=== PATIENT | female | born 1985 | race Caucasian/White ===

== ENCOUNTER 2016-11-01 07:14 | Inpatient (IN) | payer MEDICAID ==
[~2016-11-01] VITALS: Ht 165.1 cm; Wt 67.7 kg
[~2016-11-01 07:14] MED LIST: HYDR-906 PO
--- NOTE | 2016-11-01 07:23 | TRIAGE ---
OB Triage Datetime Report Generated by CPN: 11/01/2016 07:23 Datetime: 11/01/2016 07:21 Time of Arrival: 11/01/2016 07:10 Arrived By: Wheelchair Arrived From: Home Chief Complaint: w/ c/o ucs and urge to push Movement: Present Contractions: Regular Time Contractions Began: 11/01/2016 02:00 Contractions: Q2 Rupture of Membranes: Denies Vaginal Bleeding: Small Vaginal Discharge: Denies Recent Sexual Intercouse: Denies Abdominal Trauma: Not Applicable Patient Complaints: Contractions Initial Plan: JEFRY SANCHEZ
[2016-11-01] MEDS ORDERED: LACTATED RINGER'S 1,000 ML IV SCH (07:24)
[2016-11-01 07:28] VITALS: Ht 165.1 cm; Wt 67.7 kg
[2016-11-01] MEDS ORDERED: CARBOPROST 250 MCG INJ IM PRN ×2 (07:30→10:30)
[2016-11-01] MEDS ORDERED: LIDOCAINE 1% (MPF) 30 ML INJ INJ PRN (07:30)
[2016-11-01] MEDS ORDERED: MISOPROSTOL 200 MCG TAB PR PRN ×2 (07:30→10:30)
[2016-11-01] MEDS ORDERED: IBUPROFEN 600 MG TAB PO PRN ×2 (07:30→10:30)
[2016-11-01] MEDS ORDERED: ACETAMINOPHEN/CODEINE #3 TAB PO PRN ×3 (07:30→10:30)
[2016-11-01] MEDS ORDERED: METHYLERGONOVINE 0.2 MG INJ IM PRN ×2 (07:30→10:30)
[2016-11-01] MEDS ORDERED: BUTORPHANOL 2 MG INJ IV PRN (07:30)
[2016-11-01] MEDS ORDERED: OXYTOCIN 30 UNITS/LR 500 ML IV SCH ×2 (07:30)
[2016-11-01] MEDS ORDERED: OXYTOCIN 30 UNITS/LR 500 ML IV PRN ×2 (07:30→10:30)
[2016-11-01 07:43] LABS: ADD SCAN DIFF NO
[2016-11-01 07:50] LABS: BASOPHILS % 0.4 % (0.0-2.0); EOSINOPHILS # 0.1 10^3/ul (0.0-0.5); EOSINOPHILS % 0.8 % (0.0-7.0); HEMATOCRIT 42.3 % (37.0-47.0); HEMOGLOBIN 14.3 g/dl (12.0-16.0); LYMPHOCYTES # 1.7 10^3/ul (0.8-2.9); LYMPHOCYTES % 18.9 % (15.0-51.0); MEAN CORPUSCULAR HEMOGLOBIN 31.1 pg (29.0-33.0); MEAN CORPUSCULAR HGB CONC 33.8 g/dl (32.0-37.0); MEAN PLATELET VOLUME 11.4 fl (7.4-10.4); MONOCYTE # 0.8 10^3/ul (0.3-0.9); MONOCYTES % 8.3 % (0.0-11.0); NEUTROPHIL # 6.5 10^3/ul (1.6-7.5); NEUTROPHILS % 70.5 % (39.0-77.0); PLATELET COUNT 192 10^3/UL (140-415); RED CELL DISTRIBUTION WIDTH 12.9 % (11.5-14.5); WHITE BLOOD COUNT 9.2 10^3/ul (4.8-10.8)
[2016-11-01 08:02] LABS: INR 0.9; PROTIME 12.1 Sec (12.2-14.2); PT RATIO 0.9
[2016-11-01 08:03] LABS: PARTIAL THROMBOPLASTIN TIME 27.5 Sec (25.0-35.0)
[2016-11-01] MEDS ORDERED: LACTATED RINGER'S 1,000 ML IV PRN (09:00)
--- NOTE | 2016-11-01 09:01 | LDN ---
Date/Time of Note Date/Time of Note DATE: 11/01/16 TIME: 08:05 Delivery Summary Spontaneous vaginal delivery Weeks of Gestation 39 4/ Placenta Delivered: Spontaneously Meconium: none Episiotomy: No Laceration repair: small sulcus laceration repaired Anesthesia type: Local Estimated blood loss: 250 Sponge & Needle done & correct: Yes All needle counts correct: Yes Any foreign bodies felt in the: No Problems: Delivery Information Sex Sex: male Apgars 1 Minute: 8 5 Minute: 9 Suctioning Nose & mouth suctioned at shiraz: Yes Delee suction performed: No Umbilical Cord Umbilical cord with: 3 Vessels Cord presentations: nuchal cord Nuchal cord present X: 1 Cord Blood was obtained: Yes Mother & Baby Disposition Disposition Mom transferred to: Med/Surg CAESAR VALADEZ MD Nov 01, 2016 09:01
[2016-11-01] MEDS: OXYTOCIN 30 UNITS/LR 500 ML IV SCH ×4 (10:04→15:33)
[2016-11-01 10:10] VITALS: BP 109/66; PULSE 74; RESP 19
[2016-11-01] MEDS ORDERED: DIBUCAINE 1% 30 GM OINT PR PRN ×2 (10:30)
[2016-11-01] MEDS ORDERED: ACETAMINOPHEN 325 MG TAB PO PRN (10:30)
[2016-11-01] MEDS ORDERED: LANOLIN 7 GM TUBE TOP PRN ×2 (10:30)
[2016-11-01] MEDS ORDERED: OXYCODONE/ASPIRIN (4.88/325) TAB PO PRN ×4 (10:30)
[2016-11-01] MEDS ORDERED: BENZOCAINE 20% 56 ML SPRAY TOP PRN ×2 (10:30)
[2016-11-01] MEDS ORDERED: ACETAMINOPHEN 500 MG TAB PO PRN (10:30)
[2016-11-01] MEDS ORDERED: ONDANSETRON 4 MG INJ IV PRN (10:30)
[2016-11-01] MEDS ORDERED: SENNA/DOCUSATE NA (8.6MG/50MG) TAB PO PRN (10:30)
[2016-11-01] MEDS ORDERED: WITCH HAZEL/GLYCERIN PAD PR PRN ×2 (10:30)
[2016-11-01 10:50] VITALS: BP 108/62; PULSE 74; RESP 19
[2016-11-01 12:00] VITALS: BP 94/52; PULSE 78; RESP 18
[2016-11-01] MEDS: IBUPROFEN 600 MG TAB PO SCH ×3 (12:25→23:22)
[2016-11-01 16:00] VITALS: BP 121/83; PULSE 75; RESP 19
[2016-11-01 20:00] VITALS: BP 99/67; PULSE 70; RESP 18
[2016-11-01] MEDS: SENNA/DOCUSATE NA (8.6MG/50MG) TAB PO SCH (21:49)
[2016-11-02 04:41] VITALS: BP 105/66; PULSE 69; RESP 20
[2016-11-02] MEDS: IBUPROFEN 600 MG TAB PO SCH ×3 (05:11→17:36)
[2016-11-02 08:00] VITALS: BP 105/67; PULSE 74; RESP 19
[2016-11-02 08:08] LABS: ADD SCAN DIFF NO
[2016-11-02 08:22] LABS: BASOPHILS % 0.3 % (0.0-2.0); EOSINOPHILS # 0.1 10^3/ul (0.0-0.5); EOSINOPHILS % 1.2 % (0.0-7.0); HEMATOCRIT 35.3 % (37.0-47.0); HEMOGLOBIN 11.7 g/dl (12.0-16.0); LYMPHOCYTES % 21.6 % (15.0-51.0); MEAN CORPUSCULAR HEMOGLOBIN 31.5 pg (29.0-33.0); MEAN CORPUSCULAR HGB CONC 33.1 g/dl (32.0-37.0); MEAN CORPUSCULAR VOLUME 94.9 fl (82.0-101.0); MEAN PLATELET VOLUME 11.6 fl (7.4-10.4); MONOCYTE # 0.7 10^3/ul (0.3-0.9); MONOCYTES % 7.4 % (0.0-11.0); NEUTROPHIL # 6.4 10^3/ul (1.6-7.5); NEUTROPHILS % 68.8 % (39.0-77.0); PLATELET COUNT 161 10^3/UL (140-415); RED BLOOD COUNT 3.72 10^6/ul (4.20-5.40); RED CELL DISTRIBUTION WIDTH 13.1 % (11.5-14.5); WHITE BLOOD COUNT 9.3 10^3/ul (4.8-10.8)
[2016-11-02] MEDS: SENNA/DOCUSATE NA (8.6MG/50MG) TAB PO SCH ×2 (08:47→19:56)
--- NOTE | 2016-11-02 09:16 | PN ---
Date/Time of Note Date/Time of Note DATE: 11/02/16 TIME: 09:15 OB Subjective Subjective Subjective day 1 Afebrile vital signs stable abdomen soft uterus firm lochia normal extremity normal ambulation encouraged plan of possible a.m. discharge discussed with the patient Laboratory Tests Test 11/02/16 06:40 White Blood Count 9.310^3/ul Red Blood Count 3.7210^6/ul Hemoglobin 11.7g/dl Hematocrit 35.3% Mean Corpuscular Volume 94.9fl Mean Corpuscular Hemoglobin 31.5pg Mean Corpuscular Hemoglobin Concent 33.1g/dl Red Cell Distribution Width 13.1% Platelet Count 68355^3/UL Mean Platelet Volume 11.6fl Neutrophils % 68.8% Lymphocytes % 21.6% Monocytes % 7.4% Eosinophils % 1.2% Basophils % 0.3% Nucleated Red Blood Cells % 0.0/100WBC Neutrophils # 6.410^3/ul Lymphocytes # 2.010^3/ul Monocytes # 0.710^3/ul Eosinophils # 0.110^3/ul Basophils # 0.010^3/ul Nucleated Red Blood Cells # 0.010^3/ul Current Medications Medications (Trade) Dose Ordered Sig/Debbi Route PRN Reason Start Time Stop Time Status Last Admin Dose Admin Lactated Ringer's (Lr) 1,000 ml @ 125 mls/hr Q8H IV 11/01/16 07:24 11/01/16 10:09 DC 11/01/16 07:50 Butorphanol Tartrate (Stadol) 2 mg Q2H PRN IV PAIN 11/01/16 07:30 11/01/16 10:09 DC Lidocaine 30 ml 30 ml ONCE PRN INJ EPISIOTOMY/TEARING 11/01/16 07:30 11/01/16 10:09 DC Oxytocin/Lactated Ringer's 500 ml @ 125 mls/hr ONCE -MAY REPEAT X1 IV 11/01/16 07:30 11/01/16 10:09 DC 11/01/16 08:24 Oxytocin/Lactated Ringer's 500 ml @ 125 mls/hr ONCE IV 11/01/16 07:30 11/01/16 10:09 DC 11/01/16 08:38 Ibuprofen (Motrin) 600 mg ONCE PRN PO Mild Pain (Pain Score 1-3) 11/01/16 07:30 11/01/16 10:10 DC Acetaminophen/ Codeine Phosphate 2 tab 2 tab ONCE PRN PO Moderate to Severe Pain (4-10) 11/01/16 07:30 11/01/16 10:10 DC 11/01/16 08:35 Lactated Ringer's 1,000 ml @ 2,000 mls/hr Q30M PRN IV PRE-EPIDURAL BOLUS 11/01/16 09:00 11/01/16 10:10 DC Oxytocin/Lactated Ringer's 500 ml @ 0 mls/hr ONCE PRN IV For Hemorrhage Management 11/01/16 07:30 11/01/16 10:08 DC Methylergonovine Maleate (Methergine) 0.2 mg ONCE PRN IM VAGINAL BLEEDING 11/01/16 07:30 11/01/16 10:08 DC Carboprost Tromethamine (Hemabate) 250 mcg ONCE PRN IM VAGINAL BLEEDING 11/01/16 07:30 11/01/16 10:08 DC Misoprostol (Cytotec) 1,000 mcg ONCE PRN AR VAGINAL BLEEDING 11/01/16 07:30 11/01/16 10:08 DC Oxycodone/Aspirin (Percodan) 1 tab Q3H PRN PO PAIN LEVEL 1-5 11/01/16 10:30 Oxycodone/Aspirin (Percodan) 2 tab Q3H PRN PO PAIN LEVEL 6-10 11/01/16 10:30 Senna/Docusate Sodium (Senokot-S) 1 tab BID PRN PO CONSTIPATION 11/01/16 10:30 Witch Cinthia/ Glycerin (Tucks Pads) 1 pad BEDSIDE MEDICATION PRN AR HEMORRHOID/EPISIOTMY PAIN 11/01/16 10:30 11/01/16 11:55 Benzocaine (Dermoplast [place]) 1 spray BEDSIDE MEDICATION PRN TOP HEMORRHOID/EPISIOTMY PAIN 11/01/16 10:30 11/01/16 11:54 Dibucaine (Nupercainal) 1 applic BEDSIDE MEDICATION PRN AR HEMORRHOID/EPISIOTMY PAIN 11/01/16 10:30 Lanolin ([id number]) 1 applic BEDSIDE MEDICATION PRN TOP BEDSIDE FOR GRISELDA TO NIPPLES 11/01/16 10:30 Diphtheria/ Tetanus/Acell Pertussis 0.5 ml 0.5 ml ONCE ONCE IM* 11/03/16 09:00 11/03/16 09:01 Oxytocin/Lactated Ringer's 500 ml @ 0 mls/hr ONCE PRN IV For Hemorrhage Management 11/01/16 10:30 Methylergonovine Maleate (Methergine) 0.2 mg ONCE PRN IM VAGINAL BLEEDING 11/01/16 10:30 Carboprost Tromethamine (Hemabate) 250 mcg ONCE PRN IM VAGINAL BLEEDING 11/01/16 10:30 Misoprostol 1000 mcg 1,000 mcg ONCE PRN AR VAGINAL BLEEDING 11/01/16 10:30 Oxytocin/Lactated Ringer's 500 ml @ 125 mls/hr Q4H IV 11/01/16 10:04 11/01/16 17:31 DC 11/01/16 11:53 Ibuprofen (Motrin) 600 mg Q6H PRN PO PAIN 11/01/16 10:30 11/01/16 10:32 DC Acetaminophen 500 mg 500 mg Q6H PRN PO PAIN AND OR ELEVATED TEMP 11/01/16 10:30 Oxytocin/Lactated Ringer's 500 ml @ 125 mls/hr Q4H IV 11/01/16 10:04 11/01/16 17:31 DC Ibuprofen (Motrin) 600 mg Q6 PO 11/01/16 12:00 11/02/16 05:11 Acetaminophen (Tylenol Tab) 650 mg Q4H PRN PO PAIN LEVEL 1-5 11/01/16 10:30 11/01/16 10:31 DC Acetaminophen/ Codeine Phosphate (Tylenol No.3) 1 tab Q4H PRN PO PAIN LEVEL 1-5 11/01/16 10:30 Acetaminophen/ Codeine Phosphate (Tylenol No.3) 2 tab Q4H PRN PO PAIN LEVEL 6-10 11/01/16 10:30 Oxycodone/Aspirin (Percodan) 1 tab Q3H PRN PO PAIN LEVEL 1-5 11/01/16 10:30 UNV Oxycodone/Aspirin (Percodan) 2 tab Q3H PRN PO PAIN LEVEL 6-10 11/01/16 10:30 11/01/16 10:32 DC Ondansetron HCl (Zofran Inj) 4 mg Q6H PRN IV NAUSEA AND/OR VOMITING 11/01/16 10:30 Senna/Docusate Sodium (Senokot-S) 1 tab BID PO 11/01/16 21:00 11/02/16 08:47 Witch Cinthia/ Glycerin (Tucks Pads) 1 pad BEDSIDE MEDICATION PRN AR HEMORRHOID/EPISIOTMY PAIN 11/01/16 10:30 UNV Benzocaine (Dermoplast [place]) 1 spray BEDSIDE MEDICATION PRN TOP HEMORRHOID/EPISIOTMY PAIN 11/01/16 10:30 UNV Dibucaine (Nupercainal) 1 applic BEDSIDE MEDICATION PRN AR HEMORRHOID/EPISIOTMY PAIN 11/01/16 10:30 UNV Lanolin (Cwk-B-[place]) 1 applic BEDSIDE MEDICATION PRN TOP BEDSIDE FOR GRISELDA TO NIPPLES 11/01/16 10:30 11/01/16 10:35 DC Measles/Mumps/ Rubella Vaccine Live (Mmr Ii Vaccine) 0.5 ml ONCE ONCE SC* 11/03/16 09:00 11/03/16 09:01 REGINA STOCKTON MD Nov 02, 2016 09:16
[2016-11-02 16:00] VITALS: BP 101/57; PULSE 62; RESP 18
[2016-11-02 22:24] VITALS: BP 104/58; PULSE 66; RESP 18
[2016-11-03] MEDS: IBUPROFEN 600 MG TAB PO SCH ×3 (00:10→12:23)
[2016-11-03 04:20] VITALS: BP 96/53; PULSE 69; RESP 18
[2016-11-03 08:00] VITALS: BP 95/55; PULSE 63; RESP 18
[2016-11-03] MEDS ORDERED: DIPHTH/TET/ACEL PERTUSS (ADULT) 0.5 ML VIAL IM* ONE (09:00)
[2016-11-03] MEDS ORDERED: MEASLES,MUMPS,RUBELLA VACCINE INJ SC* ONE (09:00)
[2016-11-03] MEDS: SENNA/DOCUSATE NA (8.6MG/50MG) TAB PO SCH (09:54)
--- NOTE | 2016-11-03 15:58 | PD.PPDC ---
[facility] Discharge Instruction Condition Patient Condition: Good Activity/Restrictions Activity: Normal Activity May Shower Follow-up Follow-up with Physician: 2, Week/Weeks Provider Information: instructions given, appointment in 2 weeks for check Return to clinic for [facility] Instructions: Fever greater than 101 Chills Worsening abdominal pain Excessive Vaginal Bleeding More than 2 pads per hour Unable to tolerate diet OB Instructions: Breast Tenderness Depression Blurried Vision Headache REGIAN STOCKTON MD Nov 03, 2016 15:58
[2016-11-03 16:00] VITALS: BP 93/55; PULSE 67; RESP 18
--- NOTE | 2016-11-03 16:02 | DS ---
Date/Time of Note Date/Time of Note DATE: 11/03/16 TIME: 16:00 Discharge Summary Admission/Discharge Info Admit Date/Time Nov 01, 2016 at 07:18 Discharge Date/Time November 03, 2016 at 1600 Final Diagnosis Term delivered day 2 Patient Condition: Good Procedures Normal vaginal delivery Hx of Present Illness Term admitted for delivery Hospital Course Satisfactory uneventful Home Meds Active Scripts Hydrocodone/Acetaminophen ([place] 5-325 Tablet) 1 Each Tablet, 1 EACH PO Q8, #6 TAB Prov:CINDY DEVINE DO 05/27/16 Follow-up Plan Appointment clinic in 2 weeks for check Primary Care Provider Care Physician No Primary Time spent on discharge: < 30 minutes ERGINA STOCKTON MD Nov 03, 2016 16:02
== END 2016-11-03 17:56 | disposition home or self-care (01) | DRG 775 ==
LOC: OBT 07:14 → L-D 07:15 → OBT 07:16 → L-D 07:18 → PP1 10:07
PROVIDERS: ADMIT Obstetrics & Gynecology; ATTEND Obstetrics & Gynecology
PROC: 10E0XZZ Delivery of Products of Conception, External Approach (ICD-10-PCS; principal; 2016-11-01)
PROC: 0UQGXZZ Repair Vagina, External Approach (ICD-10-PCS; 2016-11-01)
PROC: 3E00X4Z Introduction of Serum, Toxoid and Vaccine into Skin and Mucous Membranes, External Approach (ICD-10-PCS; 2016-11-03)
DX: O69.81X0 Labor and delivery complicated by cord around neck, without compression, not applicable or unspecified (principal); O71.4 Obstetric high vaginal laceration alone; Z23 Encounter for immunization; Z3A.39 39 weeks gestation of pregnancy; Z37.0 Single live birth
CPT/HCPCS: 85025; 85610; 85730; 86592; 86900; 86901; 90715; G0463; J2590; J7120